=== PATIENT | male | born 2000 | race Caucasian/White ===

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

== ENCOUNTER 2018-01-06 20:00 | Emergency (ER) | payer OTHER ==
[~2018-01-06] VITALS: Ht 180.3 cm; Wt 69.0 kg
[~2018-01-06 20:00] MED LIST changes: +ARIP30TA3 PO; +FLUO10CA24 PO; -LAMO100T16 PO; +LAMO200T35 PO
[2018-01-06 20:06] VITALS: TEMP 36.7; Ht 180.3 cm; Wt 69.0 kg
[2018-01-06 20:13] VITALS: O2SAT 95
[2018-01-06] MEDS ORDERED: ONDANSETRON INJ 2 MG/ML 2 ML VIAL IV STA (20:18)
--- NOTE | 2018-01-06 20:26 | EMERGENCY ROOM VISIT NOTE ---
History Report prepared by Carole: Momo Ware Under the Supervision of: Dr. Jonny Hollis M.D. First contact with patient: 20:09 Chief Complaint: SEIZURE Stated Complaint: SEIZURE History of Present Illness The patient is a 17 year old white male with a past medical history of autism and seizure disorder who presents to the ED with a cc of a resolved seizure beginning 1929. The patient is accompanied by his mother who states that the patient has a history of seizures with his last one in August. She reports that at the time he was sitting close to a screen at the movie theatre. Mom states the patient was shaking and experienced his first clonic tonic seizure. She reports the patient has been taking his Lamictal and following up with Dr. Olivas. She reports he has not had any seizure like activity since August until ton. Mom states the patient was watching his friends graduate on a large screen. She reports the patient was close to the screen when he started to experience a seizure. Mom states she was not at the school, but states witnesses reported it lasted for a minute. Positive fatigue. Negative falling down stairs, change in medication, lack of sleep, alcohol or drug use, any pain. Source of History: parent Onset: 1929 Position: other (global) Quality: other (global) Timing: resolved Associated Symptoms: + fatigue Note: Negative: any pain. Review of Systems See HPI for pertinent positives and negatives. A total of ten systems were reviewed and were otherwise negative. Past Medical & Surgical Medical Problems: (1) Asthma (2) Autism (3) Chromosome 6q terminal deletion syndrome (4) Seizure Family History Patient reports no known family medical history. Social History Smoking Status: Never Smoker Alcohol Use: none Drug Use: none Marital Status: single Housing Status: lives with family Occupation Status: student Current/Historical Medications Scheduled Aripiprazole (Abilify), 30 MG PO DAILY Fluoxetine HCl (Fluoxetine HCl), 10 MG PO QAM Lamotrigine (Lamictal), 200 MG PO BID Lamotrigine (Lamictal), 25 MG PO BID Allergies Coded Allergies: Cefaclor (Verified Allergy, Unknown, 01/06/18) Physical Exam Vital Signs Date Time Temp Pulse Resp B/P (MAP) Pulse Ox O2 Delivery O2 Flow Rate FiO2 01/06/18 23:10 85 18 102/47 97 01/06/18 21:53 66 18 98/44 96 Nasal Cannula 2.0 01/06/18 21:06 69 01/06/18 20:13 95 Room Air 01/06/18 20:06 36.7 120 18 117/53 95 Room Air Physical Exam GENERAL: Awake, easily arousable, well-appearing, NAD HENT: Normocephalic, atraumatic. EYES: Normal conjunctiva. Sclera non-icteric. PERRL. No anisocoria. NECK: Supple. No nuchal rigidity. FROM. RESPIRATORY: CTAB, no rhonchi, wheezing, crackles CARDIAC: RRR, no MRG ABDOMEN: Soft, NTND, BS+ MSK: No chest wall TTP, no LE edema NEURO: GCS 14, CN 2-12 intact, moves all 4s on command. follows commands, slow deliberate speech. SKIN: No rash or jaundice noted. Acne over the face. Medical Decision & Procedures Laboratory Results 01/06/18 20:00 Red Blood Count 5.25, Mean Corpuscular Volume 92.6, Mean Corpuscular Hemoglobin 28.6, Mean Corpuscular Hemoglobin Concent 30.9, Mean Platelet Volume 9.8, Neutrophils (%) (Auto) 48.3, Lymphocytes (%) (Auto) 42.6, Monocytes (%) (Auto) 8.0, Eosinophils (%) (Auto) 0.3, Basophils (%) (Auto) 0.3, Neutrophils # (Auto) 4.81, Lymphocytes # (Auto) 4.24, Monocytes # (Auto) 0.80, Eosinophils # (Auto) 0.03, Basophils # (Auto) 0.03 01/06/18 20:00 Test 01/06/18 20:00 White Blood Count 9.96 K/uL (4.8-10.8) Red Blood Count 5.25 M/uL (4.7-6.1) Hemoglobin 15.0 g/dL (14.0-18.0) Hematocrit 48.6 % (42-52) Mean Corpuscular Volume 92.6 fL (80-100) Mean Corpuscular Hemoglobin 28.6 pg (25-34) Mean Corpuscular Hemoglobin Concent 30.9 g/dl (32-36) Platelet Count 230 K/uL (130-400) Mean Platelet Volume 9.8 fL (7.4-10.4) Neutrophils (%) (Auto) 48.3 % Lymphocytes (%) (Auto) 42.6 % Monocytes (%) (Auto) 8.0 % Eosinophils (%) (Auto) 0.3 % Basophils (%) (Auto) 0.3 % Neutrophils # (Auto) 4.81 K/uL (1.4-6.5) Lymphocytes # (Auto) 4.24 K/uL (1.2-3.4) Monocytes # (Auto) 0.80 K/uL (0.11-0.59) Eosinophils # (Auto) 0.03 K/uL (0-0.5) Basophils # (Auto) 0.03 K/uL (0-0.2) RDW Standard Deviation 44.0 fL (36.4-46.3) RDW Coefficient of Variation 13.0 % (11.5-14.5) Immature Granulocyte % (Auto) 0.5 % Immature Granulocyte # (Auto) 0.05 K/uL (0.00-0.02) Prothrombin Time 10.5 SECONDS (9.0-12.0) Prothromb Time International Ratio 1.0 (0.9-1.1) Activated Partial Thromboplast Time 24.3 SECONDS (21.0-31.0) Partial Thromboplastin Ratio 0.9 Anion Gap 19.0 mmol/L (3-11) Est Creatinine Clear Calc Drug Dose 61.7 ml/min Estimated GFR () 58.7 Estimated GFR (Non- 50.6 BUN/Creatinine Ratio 12.0 (10-20) Calcium Level 9.1 mg/dl (8.5-10.1) Phosphorus Level 4.7 mg/dl (2.5-4.9) Magnesium Level 2.4 mg/dl (1.8-2.4) Thyroid Stimulating Hormone (TSH) 2.940 uIu/ml (0.300-4.500) Laboratory results reviewed by me Medications Administered Medications (Trade) Dose Ordered Sig/Harish Route Start Time Stop Time Status Last Admin Dose Admin Ondansetron HCl (Zofran Inj) 4 mg NOW STAT IV 01/06/18 20:18 01/06/18 20:20 DC 01/06/18 20:26 4 MG ED Course 2013: The patient was evaluated in room B06. A complete history and physical exam was performed. 2259: I reevaluated the patient. Discussed results and discharge instructions: He and his mother verbalized understanding and agreement. The patient is ready for discharge. Medical Decision Nursing notes reviewed. Ancillary studies and prior records reviewed. The patient is a 17 year old white male with a past medical history of autism and seizure disorder who presents to the ED with a cc of a resolved seizure beginning 193. The patient's presentation and history were concerning for etiologies such as infection, hypoglycemia, electrolyte abnormalities, cardiac sources, intracerebral event, trauma, toxicologic, neurologic, as well as others were entertained. Patient was seen and evaluated at the bedside. Patient reportedly had a seizure during a class event today. The mother who is at bedside states that this did happen once before as a generalized tonic-clonic seizure at a movie theater. She believes that he was watching something on the large screen was sitting in the front row and this may have precipitated his seizure event. Patient does have absence type seizures more regularly. Patient is on Lamictal. Mother states the child is compliant. On exam the patient is easily arousable the patient follows commands and has a GCS of he does feel tired but denies any acute symptomatic complaints otherwise. Blood work was obtained and the patient was given IV fluids. I did discuss with the mother bedside not obtaining a CT scan given the patient's nonfocal neurologic exam and lack of trauma or blood thinning medications in a patient with a known history of seizure disorder. She is agreeable to this. Patient's blood work shows a normal white blood cell count 9000. No signs of meningismus do not believe meningitis. Patient does have a low bicarbonate and elevated anion gap which is most consistent likely with a probable lactic acidosis secondary to seizure. The patient was given IV fluids. The patient's kidney function shows a creatinine 1.8 prior was 1.5. I did convey this to the mother. I did state this may be related to the seizure. I did give the mother a prescription for a repeat BMP in the future in order to evaluate trend in her child's kidney function. The child was able to sit up and was able tolerate p.o. without issue. Patient was deemed suitable for outpatient follow-up and treatment at this time. Patient had a normal blood glucose and child was able to ambulate without issue. Patient was given strict follow-up, discharge, and return precautions. All questions were answered. Patient was deemed suitable for outpatient follow-up at this time. Patient agreed with the plan of care and was safely discharged home. Head Trauma GCS Score: 14 Medication Reconcilliation Current Medication List: was personally reviewed by me Blood Pressure Screening Patient's blood pressure: Normal blood pressure Impression Primary Impression: Seizure Additional Impression: CKD (chronic kidney disease) Scribe Attestation The scribe's documentation has been prepared under my direction and personally reviewed by me in its entirety. I confirm that the note above accurately reflects all work, treatment, procedures, and medical decision making performed by me. Departure Information Dispostion Home / Self-Care Referrals No Doctor, Assigned (PCP) Patient Instructions Epilepsy Seizures, First Aid Seizures, My [facility] Additional Instructions Please return to the emergency department if you have worsening or recurrent symptoms not amenable to at-home treatment. Please call for a follow-up appointment with her primary care physician. Please take your medications as prescribed. If you have other concerns and/or complaints please feel free to also call your primary care physician's office or return the ED for further evaluation, management, and treatment. You may take 800 mg Ibuprofen every 6 hours as needed for pain/fever with food unless told by your physician not to take NSAIDs. You may take tylenol 1000 mg every 6 hours as needed for pain/fever unless told by your physician to not take it or have liver problems. You may take motrin and tylenol separately or at the same time. Take your medications as prescribed. Your creatinine was 1.8 today. High end of normal is 1.4. Please follow up to have repeat kidney function checked w/in next 30 days. The lamictal level is a send out and will be reported at a later date. You have been examined and treated today on an emergency basis only. This is not a substitute for, or an effort to provide, complete comprehensive medical care. It is impossible to recognize and treat all injuries or illnesses in a single emergency department visit. It is therefore important that you follow up closely with [facility], your PCP, and/or your specialist(s). Call as soon as possible for an appointment. Thank you for your time and consideration. I look forward to speaking with you again soon. Please don't hesitate to call us if you have any questions. Problem Qualifiers Additional Impression: CKD (chronic kidney disease) Chronic kidney disease stage: stage 3 (moderate) Qualified Codes: N18.3 - Chronic kidney disease, stage 3 (moderate)
[2018-01-06 20:33] LABS: BASO % 0.3 %; BASO ABS # 0.03 K/uL (0-0.2); EOS % 0.3 %; EOS ABS # 0.03 K/uL (0-0.5); HEMATOCRIT 48.6 % (42-52); IG# 0.05 K/uL (0.00-0.02); LYMPH % 42.6 %; LYMPH ABS # 4.24 K/uL (1.2-3.4); MEAN CELL VOLUME 92.6 fL (80-100); MEAN CORPUSCULAR HEMOGLOBIN 28.6 pg (25-34); MEAN CORPUSCULAR HGB CONC 30.9 g/dl (32-36); MEAN PLATELET VOLUME 9.8 fL (7.4-10.4); NEUT % 48.3 %; NEUT ABS # 4.81 K/uL (1.4-6.5); PLATELET COUNT 230 K/uL (130-400); WHITE BLOOD COUNT 9.96 K/uL (4.8-10.8)
[2018-01-06] MEDS ORDERED: LAMO25TA PO (20:38)
[2018-01-06 20:51] LABS: CALCIUM 9.1 mg/dl (8.5-10.1); CREATININE 1.88 mg/dl (0.60-1.40); POTASSIUM 3.7 mmol/L (3.5-5.1)
[2018-01-06 21:02] LABS: PHOSPHORUS 4.7 mg/dl (2.5-4.9)
[2018-01-06 21:16] LABS: PTT PATIENT 24.3 SECONDS (21.0-31.0)
[2018-01-06 23:10] VITALS: BP 102/47; PULSE 85; O2SAT 97
== END 2018-01-06 23:05 | disposition home or self-care (01) ==
LOC: EDBD 20:00 → C.EDB 20:01
DX: G40.909 Epilepsy, unspecified, not intractable, without status epilepticus (principal); N18.3 Chronic kidney disease, stage 3 (moderate); J45.909 Unspecified asthma, uncomplicated; F84.0 Autistic disorder; Q93.5 Other deletions of part of a chromosome; Z79.899 Other long term (current) drug therapy; Z88.1 Allergy status to other antibiotic agents